=== PATIENT | female | born 1965 | race Caucasian/White ===

== ENCOUNTER 2016-09-05 20:01 | Emergency (ER) | payer MEDICARE, MEDICAID ==
[2016-09-05 23:02] LABS: APPEARANCE CLEAR (CLEAR); COLOR YELLOW (YELLOW); LEUKOCYTE ESTERASE TRACE (NEGATIVE); NITRITE NEGATIVE (NEGATIVE); PROTEIN TRACE mg/dL (NEGATIVE); SPECIFIC GRAVITY 1.015 (1.005-1.020)
[2016-09-05 23:03] LABS: BACTERIA FEW /hpf (NONE SEEN); BILIRUBIN NEGATIVE (NEGATIVE); EPITHELIAL CELLS 0-5 /hpf (0-5); GLUCOSE NEGATIVE (NEGATIVE); KETONE LARGE mg/dL (NEGATIVE); RED CELLS - URINE 0-5 /hpf (0-5); UROBILINOGEN NORMAL (NORMAL); WHITE CELLS - URINE 0-5 /hpf (0-5)
[2016-09-05 23:15] LABS: BASOPHILS 0.1 % (0-2); EOSINOPHILS 0.1 % (0-7); HEMATOCRIT 46.9 % (36.0-48.0); HEMOGLOBIN 15.7 g/dL (12-16); IMMATURE GRANULOCYTES 0.3 % (0-5); LYMPHOCYTES 20.6 % (15-50); MCHC 33.5 g/dL (31.0-37.0); MCV 86.7 fL (80.0-100.0); MEAN PLATELET VOLUME 10.9 fL (7.4-10.4); MONOCYTES 6.7 % (2-11); NEUTROPHILS 72.2 % (40-80); PLATELET COUNT 262 10x3/uL (130-400); RBC 5.41 10x6/uL (4.00-5.40); RDW 13.5 % (11.5-14.5)
[2016-09-05 23:29] LABS: ALBUMIN 3.1 g/dL (3.4-5.0); ALKALINE PHOSPHATASE 144 U/L (46-116); ALT (SGPT) 23 U/L (10-68); BILIRUBIN - TOTAL 0.76 mg/dL (0.2-1.3); CALC OSMOLALITY 272 mosm/kg (275-300); CARBON DIOXIDE 27.6 mmol/L (21.0-32.0); CHLORIDE - SERUM 97 mmol/L (98-107); CREATININE - SERUM 0.6 mg/dL (0.6-1.3); GLUCOSE 102 mg/dL (74-106); POTASSIUM - SERUM 3.3 mmol/L (3.5-5.1); PROTEIN - SERUM 7.2 g/dL (6.4-8.2); SODIUM 137 mmol/L (136-145); UREA NITROGEN 10 mg/dL (7-18); eGFR NON AFRICAN AMERICAN > 90 mL/min (90-120)
== END 2016-09-06 02:26 | disposition home or self-care (01) ==
LOC: D.ER 20:01
PROVIDERS: Physician Assistant Medical
DX: S80.01XA Contusion of right knee, initial encounter (principal); X58.XXXA Exposure to other specified factors, initial encounter; Y93.89 Activity, other specified; Y92.89 Other specified places as the place of occurrence of the external cause; K29.00 Acute gastritis without bleeding; J44.9 Chronic obstructive pulmonary disease, unspecified; F41.9 Anxiety disorder, unspecified

== ENCOUNTER 2016-09-16 21:20 | Inpatient (IN) | payer MEDICARE ==
[~2016-09-16] VITALS: Ht 170.2 cm; Wt 100.7 kg
--- NOTE | ~2016-09-16 | CN ---
PATIENT NAME:BRAD GUZMAN MEDICAL RECORD: [id number] : 63 LOCATION:[id number] ADMIT DATE: 09/17/16 ACCOUNT: [id number] CONSULTING PHYSICIAN: CRICKET RAMOS MD REFERRING PHYSICIAN: RONY YOUNGBLOOD MD DATE OF CONSULTATION: 09/17/2016 CONSULT REQUESTING PHYSICIAN: Rony Youngblood MD. REASON FOR CONSULTATION: Vent management and septic shock. HISTORY OF PRESENT ILLNESS: Ms. Guzman is a 50-year-old female, who is now orally intubated and sedated and the patient did become bradycardic and pulseless electrical activity and code blue was called. The patient was resuscitated and responded to cardiac massage, 2 rounds of epinephrine and atropine 0.6 mg times 1 and start her Levophed and vasopressor if the blood pressure is low. I also spoke with Dr. Gallardo. The patient was brought into the ER. She is on the floor since yesterday and the was drunk. When the EMS arrived, her blood pressure was 70/40, and in the ER, was 67/42. The patient was orally intubated and now she is sedated. She has vomited at home with coffee-ground emesis. In the ER, the patient was poorly responsive. On arrival in the ER, her lactic acid level was 16. There is severe metabolic acidosis on the ABG. Her creatinine was 2.4. She was given 2-3 L of fluid resuscitation. REVIEW OF SYSTEMS: Mainly in the history of present illness. PAST MEDICAL HISTORY: Unknown. ALLERGIES: No known drug allergies. PERSONAL AND SOCIAL HISTORY: Unknown. She is and lives with her . Smoking and drinking history is unknown. FAMILY HISTORY: Noncontributory. PHYSICAL EXAMINATION: VITAL SIGNS: Now, the blood pressure is 97-108/81, the pulse is 108, respirations 26, temperature is 98.8, SpO2 of 97%. She is on mechanical ventilation, 50% oxygen. During the code blue, the patient's pulse dropped to 20s and the patient's blood pressure was in 60s. HEENT: Conjunctivae are pale. Sclerae not icteric. The pupils are sluggish. NECK: Supple. No JVD. CHEST: There is no wheeze, no rales. HEART: Rate and rhythm is regular, normal sounds. No murmur. ABDOMEN: She is morbidly obese. Bowel sounds are muffled. RECTAL: Deferred. EXTREMITIES: No cyanosis, no clubbing, 1+ pedal edema. SKIN: Warm, normal turgor. CENTRAL NERVOUS SYSTEM: The patient is orally intubated and sedated. There is no obvious cranial nerve abnormality. LABORATORY DATA: CBC: The WBC is 15.4, hemoglobin 15, hematocrit is 44.3, the platelet count is 240. Chemistry: Sodium 148, potassium 3.4, BUN is 58, creatinine 2.5, bicarbonate of 22. The lactic acid level is 10.4. Calcium is CONSULT REPORT [id number] BRAD GUZMAN 7, magnesium is 1.5. AST is 798, ALT is 236. Albumin is 2.2. IMPRESSION: 1. Status post cardiopulmonary arrest. 2. Septic shock, possible hypovolemic shock. 3. Acute hypoxic hypercapnic respiratory failure. 4. Possible upper gastrointestinal bleed, but the patient is holding her hematocrit. 5. Metabolic acidosis with associated lactic acidosis. 6. Acute renal failure, most likely acute tubular necrosis. 7. Elevated liver enzymes consistent with a shock liver. 8. Acute mental status changes, rule out anoxic encephalopathy. 9. Leukocytosis. RECOMMENDATIONS: 1. I would discontinue Rocephin and start her on cefepime, Levaquin and vancomycin to cover for Gram-negative leonardo as well as MRSA. 2. Check the blood culture. 3. We will follow the vent bundle, GI bleed prophylaxis, DVT prophylaxis. 4. SCD. 5. Follow series of labs and chest radiograph. The prognosis is guarded. Discussed with Dr. Gallardo. The critical care time is [address] Youngblood, thank you for involving me in the care of Ms. Guzman. TRANSINT:[id number] Voice Confirmation ID: [id number] DOCUMENT ID: [id number] CRICKET RAMOS MD CC: RONY YOUNGBLOOD MD [id number] DICTATION DATE: 09/17/16 1033 METAL STUD FRAMER: 09/17/16 1837 ADM IN [facility] [address] [id number]
[2016-09-16 21:55] LABS: BASOPHILS 0.4 % (0-2); EOSINOPHILS 0.1 % (0-7); HEMATOCRIT 46.2 % (36.0-48.0); IMMATURE GRANULOCYTES 2.2 % (0-5); LYMPHOCYTES 17.1 % (15-50); MCH 28.5 pg (26.0-34.0); MCHC 32.5 g/dL (31.0-37.0); MCV 87.8 fL (80.0-100.0); MEAN PLATELET VOLUME 11.5 fL (7.4-10.4); MONOCYTES 7.2 % (2-11); PLATELET COUNT 259 10x3/uL (130-400); RBC 5.26 10x6/uL (4.00-5.40); RDW 13.4 % (11.5-14.5)
[2016-09-16 22:49] LABS: APTT 27.8 SECONDS (22.8-39.4); INR 1.6 (0.85-1.17)
[2016-09-16 23:56] LABS: CKMB 0.3 U/L (0.0-3.6)
[2016-09-17] VITALS (79 sets, daily range): BP systolic 0–235; BP diastolic 0–149; Ht 170.2 cm; Wt 100.7 kg
[2016-09-17 00:08] LABS: ALKALINE PHOSPHATASE 95 U/L (46-116); ALT (SGPT) 33 U/L (10-68); BILIRUBIN - TOTAL 0.44 mg/dL (0.2-1.3); CALC OSMOLALITY 305 mosm/kg (275-300); CARBON DIOXIDE 16.3 mmol/L (21.0-32.0); CHLORIDE - SERUM 100 mmol/L (98-107); CREATINE KINASE 45 UL (21-215); CREATININE - SERUM 2.6 mg/dL (0.6-1.3); GLUCOSE 146 mg/dL (74-106); POTASSIUM - SERUM 2.9 mmol/L (3.5-5.1); PROTEIN - SERUM 4.7 g/dL (6.4-8.2); SODIUM 144 mmol/L (136-145); TROPONIN-I < 0.017 ng/mL (0.000-0.060); UREA NITROGEN 57 mg/dL (7-18); eGFR NON AFRICAN AMERICAN 21 mL/min (90-120)
--- NOTE | 2016-09-17 02:00 | NUR ---
PT RECIEVED. ASSESSMENT COMPLETE PER FLOW SHEET. VSS. WILL CONTINUE TO MONITOR.
--- NOTE | 2016-09-17 03:00 | NUR ---
CONSULT CALLED TO DR. CONNER, NEW ORDERS RECIEVED,
[2016-09-17 04:03] LABS: BASOPHILS 0.3 % (0-2); EOSINOPHILS 0.1 % (0-7); HEMATOCRIT 44.3 % (36.0-48.0); IMMATURE GRANULOCYTES 1.5 % (0-5); LYMPHOCYTES 15.3 % (15-50); MCH 28.7 pg (26.0-34.0); MCHC 33.9 g/dL (31.0-37.0); MCV 84.7 fL (80.0-100.0); MEAN PLATELET VOLUME 11.3 fL (7.4-10.4); MONOCYTES 4.2 % (2-11); NEUTROPHILS 78.6 % (40-80); PLATELET COUNT 240 10x3/uL (130-400); RBC 5.23 10x6/uL (4.00-5.40); RDW 13.5 % (11.5-14.5); WBC 15.4 10x3/uL (4.8-10.8)
--- NOTE | 2016-09-17 04:04 | NUR ---
COMPLETE BATH AND LINEN CHANGE, PT TOLERATED WELL
[2016-09-17 04:16] LABS: ALBUMIN 2.2 g/dL (3.4-5.0); ANION GAP 26.4 mmol/L (8-16); BILIRUBIN - TOTAL 0.64 mg/dL (0.2-1.3); CREATININE - SERUM 2.5 mg/dL (0.6-1.3); MAGNESIUM - SERUM 1.5 mg/dL (1.8-2.4); POTASSIUM - SERUM 3.4 mmol/L (3.5-5.1); PROTEIN - SERUM 5.1 g/dL (6.4-8.2)
--- NOTE | 2016-09-17 06:02 | NUR ---
NOTIFIED OF CONSULT
--- NOTE | 2016-09-17 09:00 | NUR ---
DR SÁNCHEZ HERE. NEW ORDERS OBTAINED.
--- NOTE | 2016-09-17 11:00 | NUR ---
NOTIFIED THAT BP IS EXTREMELY LOW AND MAXED OUT ON MEDS TO SUPPORT BP NEEDS TO COME TO HOSPITAL SO MD CAN TALK ABOUT PT CONDITION.
--- NOTE | 2016-09-17 13:00 | NUR ---
HERE. INSRUCT PT CONDITION IS GRAVE. CODE STATUS DISCUSSED. CONTINUE FULL CODE FOR NOW.
[2016-09-17 14:18] LABS: EOSINOPHILS 0.1 % (0-7); HEMOGLOBIN 12.7 g/dL (12-16); IMMATURE GRANULOCYTES 3.6 % (0-5); LYMPHOCYTES 12.7 % (15-50); MEAN PLATELET VOLUME 10.8 fL (7.4-10.4); MONOCYTES 5.4 % (2-11); NEUTROPHILS 77.2 % (40-80); RBC 4.53 10x6/uL (4.00-5.40); RDW 13.8 % (11.5-14.5); WBC 17.6 10x3/uL (4.8-10.8)
[2016-09-17 14:20] LABS: MCV 90.5 fL (80.0-100.0); PLATELET COUNT 138 10x3/uL (130-400)
--- NOTE | 2016-09-17 15:00 | NUR ---
MAXED ON LEVOPHED 30MCG/KG/MIN, DOPAMINE 15MG/KG/MIN, VASOPRESSING 0.04 UNITS/HR. BP CONTINUES TO 70/30. DR RAMOS NOTIFIED.
--- NOTE | 2016-09-17 19:00 | NUR ---
REPORT RECIEVED, SHIFT ASSESSMENT COMPLETE, PT IS UNRESPONSIVE ON THE VENT, ON 35% FIO2 WITH 95% O2 SAT. CRACKLES HEARD IN B/L UPPER LOBES, DIMINISHED IN B/L LOWER LOBES, S1S2, CM-NSR, PATENT RIGHT SC CVL....SEE FLOW SHEET. ABDOMEN IS DISTENDED WITH HYPO BS, PATENT F/C PT ANURIC, PATENT LEFT RIGHT GROIN BRANDEN, GOOD WAVEFORM, ALL PPP BUT WEAK, EDEMA NOTED IN ALL EXTREMETIES, WILL CON'T TO MONITOR
--- NOTE | 2016-09-17 19:00 | NUR ---
B/L RESTRAINTS DC'D AT THIS TIME,
[2016-09-17 20:24] LABS: CREATINE KINASE 1025 UL (21-215)
[2016-09-17 20:25] LABS: TROPONIN-I 3.003 ng/mL (0.000-0.060)
--- NOTE | 2016-09-17 21:10 | NUR ---
UPDATE GIVEN TO OVER PHONE,
--- NOTE | 2016-09-17 22:09 | NUR ---
AT BEDSIDE, SPOKE AT LENGTH WITH ABOUT PT STATUS, HE HAS DECIDED TO MAKE PT A DNR AND TERMINALLY EXTUBATE, DR. RAMOS NOTFIED AND NEW ORDERS RECIEVED, [facility] TEJEDA APN ALSO NOTIFIED
--- NOTE | 2016-09-17 22:30 | NUR ---
PT TERMINALLY EXTUBATED AT THIS TIME, AT BEDSIDE,
--- NOTE | 2016-09-17 22:38 | NUR ---
PT ASYSTOLE ON THE MONITOR
--- NOTE | 2016-09-17 22:40 | NUR ---
DR. AVERY AT BEDSIDE TO PRONOUNCE
--- NOTE | 2016-09-17 23:13 | NUR ---
CHELA PEREZ PHYSICAL AERODYNAMICIST NOTIFIED OF PT
--- NOTE | 2016-09-17 23:13 | NUR ---
DIOGO NOTIFIED OF PT
--- NOTE | 2016-09-18 | NUR ---
ATTEMPTED TO CALL THE [facility] FOR HOME, NO ANWER AT THIS TIME
--- NOTE | 2016-09-18 00:50 | NUR ---
ATTEMPTED A SECOND TIME TO CALL THE [facility]
--- NOTE | 2016-09-18 01:17 | NUR ---
[facility] OFFICE NOTIFIED OF NEED TO SEARCH FOR
--- NOTE | 2016-09-18 03:59 | NUR ---
MARGARETTE CALLED BACK WITH HOME, WILL CALL AND LET KNOW WE NEED THEIR SERVICES
--- NOTE | 2016-09-18 04:57 | NUR ---
HOME HERE FOR PT
--- NOTE | 2016-09-18 13:59 | NUR ---
1230 PHONE CALL RECIEVED FROM EMILI LYMAN SISTER OF MARGARETTE GUTIERREZ OF THE PT. STATING THAT THE OF BRAD GUTIREREZ HAS MEMORY ISSUES AND CANNOT REMEMBER THE NAME OF THE HOME THAT HE TOLD THE HOSPITAL TO SEND THE PT TO... EXPLAINED TO MS LYMAN THAT I WOULD HAVE TO HAVE IT APPROVED BEFORE I COULD GIVE THE INFORMATION TO HER... I CALLED RADHA MARTINEZ IN HEALTH INFORMATION AND RECIEVED CONFIRMATION THAT I COULD RELEASE THE INFORMATION TO EMILI LYMAN DUE TO THE MEMORY ISSUES OF THE AND IN THE BEST INTREST OF THE PATIENT.
== END 2016-09-17 22:40 | DRG 871 ==
LOC: D.ER 21:20 → D.ICU 09-17 00:36
PROVIDERS: Family Medicine; Internal Medicine Pulmonary Disease; ADMIT Emergency Medicine
PROC: 0BH17EZ Insertion of Endotracheal Airway into Trachea, Via Natural or Artificial Opening (ICD-10-PCS; 2016-09-16)
PROC: 5A1945Z Respiratory Ventilation, 24-96 Consecutive Hours (ICD-10-PCS; 2016-09-16)
PROC: 0T9B70Z Drainage of Bladder with Drainage Device, Via Natural or Artificial Opening (ICD-10-PCS; 2016-09-16)
PROC: 04HK33Z Insertion of Infusion Device into Right Femoral Artery, Percutaneous Approach (ICD-10-PCS; principal; 2016-09-17)
PROC: 5A12012 Performance of Cardiac Output, Single, Manual (ICD-10-PCS; 2016-09-17)
DX: A41.9 Sepsis, unspecified organism (principal); R65.21 Severe sepsis with septic shock; K72.00 Acute and subacute hepatic failure without coma; J96.02 Acute respiratory failure with hypercapnia; J96.01 Acute respiratory failure with hypoxia; N17.0 Acute kidney failure with tubular necrosis; K92.2 Gastrointestinal hemorrhage, unspecified; D62 Acute posthemorrhagic anemia; R41.82 Altered mental status, unspecified; Z86.74 Personal history of sudden cardiac arrest